=== PATIENT | female | born 1985 | race Caucasian/White ===

== ENCOUNTER 2021-02-09 11:04 | Outpatient (CLI) | payer OTHER, SELFPAY ==
--- NOTE | 2021-02-09 11:09 | US_ITS ---
WS: [id number] DIAGNOSTIC BILATERAL DIGITAL MAMMOGRAM WITH CAD Bilateral breast ultrasound, complete. HISTORY: N63.0 - Unspecified lump in unspecified breast COMPARISON: None available. TECHNIQUE: Bilateral craniocaudad, mediolateral oblique, and mediolateral views are submitted. Compre ssion RIGHT CC, LEFT CC and LEFT MLO. Computer aided detection utilized. Breast composition: There are scattered areas of fibroglandular density. There are no masses or disto rtion to correspond to the palpable markers placed within each breast. No skin thickening. Bilateral complete breast ultrasound. RIGHT breast: Ultrasound of all 4 quadrants demonstrated no abnormality. No suspicious masses or calc ifications. LEFT breast: Ultrasound of the entire LEFT breast demonstrates a small cyst measuring 4 mm at 1:00, 3 cm from the nipple. No distortion or shadowing. US/US breast BI complete [id number] IMPRESSION: BI-RADS: 2-Benign FOLLOW UP: 1 Year Follow-up No suspicious masses or calcifications identified to correspond to the palpable abnormalities.
--- NOTE | 2021-02-09 11:30 | MM_ITS ---
WS: [id number] DIAGNOSTIC BILATERAL DIGITAL MAMMOGRAM WITH CAD Bilateral breast ultrasound, complete. HISTORY: N63.0 - Unspecified lump in unspecified breast COMPARISON: None available. TECHNIQUE: Bilateral craniocaudad, mediolateral oblique, and mediolateral views are submitted. Compre ssion RIGHT CC, LEFT CC and LEFT MLO. Computer aided detection utilized. Breast composition: There are scattered areas of fibroglandular density. There are no masses or disto rtion to correspond to the palpable markers placed within each breast. No skin thickening. Bilateral complete breast ultrasound. RIGHT breast: Ultrasound of all 4 quadrants demonstrated no abnormality. No suspicious masses or calc ifications. LEFT breast: Ultrasound of the entire LEFT breast demonstrates a small cyst measuring 4 mm at 1:00, 3 cm from the nipple. No distortion or shadowing. MM/[place] [id number] IMPRESSION: BI-RADS: 2-Benign FOLLOW UP: 1 Year Follow-up No suspicious masses or calcifications identified to correspond to the palpable abnormalities.
== END 2021-02-09 11:05 | disposition home or self-care (01) ==
LOC: RADSHAW 11:06
PROVIDERS: PCP Nurse Practitioner; Visit Provider Nurse Practitioner
DX: N63.0 Unspecified lump in unspecified breast (principal); N60.02 Solitary cyst of left breast
CPT/HCPCS: 76641; 77066

== ENCOUNTER 2024-06-04 08:54 | Emergency (ER) | payer SELFPAY ==
[2024-06-04 09:00] VITALS: BP 129/105; PULSE 109; RESP 18; TEMP 36.8; O2SAT 96; BMI 39.9
[2024-06-04 09:23] VITALS: BP 129/105; PULSE 109; RESP 18; TEMP 36.8; O2SAT 96
--- NOTE | 2024-06-04 09:35 | ED_ITS ---
HPI - Extremity Problem General: Chief complaint: Extremity Problem,Nontraumatic Stated complaint: right and left hand pain and numb Time Seen by Provider: 06/04/24 08:56 Source: patient Mode of arrival: ambulatory Limitations: no limitations History of Present Illness: Patient is a 39-year-old female presents to ED today with complaint of bilateral finger pain and numbness. She states symptoms first started approximately 2 months ago. She is reporting numbness and pain to the palmar aspect of her bilateral first through third digits mainly to the palmar pads of the fingers. She feels like over that time. Symptoms have slowly worsened. 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 She has seen her primary care provider who has started her on gabapentin and also checked folate/B12 levels which were reportedly low. She states she is currently on IM B12 injections daily for a week and then will do weekly injections for a month. She has not noticed any improvement with these. She states her primary care provider (Dr. Melara) did talk about a possible neurology referral but wanted to try the medications first. Patient does not feel like symptoms are worse with certain provocative maneuvers. She states symptoms are constant, severe, and do not seem to wax and wane. She cannot think of any alleviating or worsening factors to her discomfort apart from applying ice to the finger pads. She has not noticed any color or temperature changes to the fingers or hands. She has not noticed any edema. Symptoms started at the same time bilaterally. MD Complaint: extremity pain Onset (ago): month(s) Pain Consistency: constant Location: left, right and upper extremity Severity scale (1-10): >10 Quality: burning Radiation: none Relieving factors: other (ice) Exacerbating factors: nothing Associated symptoms: Reports no associated symptoms; Deny fever(s) or rash Review of Systems Const: Denies: fever(s), chills, body aches, fatigue or malaise Musc: Reports: extremity pain; Denies: neck pain, extremity swelling, joint swelling, joint redness, joint warmth, joint stiffness, limited range of motion, muscle cramps or muscle weakness Skin/Breast: Denies: rash or erythema Neuro: Reports: numbness in extremities and sensory changes; Denies: headache(s), difficulty walking or dizziness [facility] ED PFSH: Medical History Chronic migraine with aura Surgical History History of 2005, 2008, 2010 Family History Grandmother Clotting disorder Diabetes Mother Hypertension Other Bleeding disorder Denies family history of Chronic kidney disease (CKD) Suicide Lung disease Cancer Stroke Social History Smoking and tobacco/nicotine status: current every day tobacco/nicotine user Alcohol intake: never Substance/Drug Use: never Adopted: No Lives independently: Yes Household members: spouse and family Housing: House Marital status: Number of children: 3 Highest education level completed: High School Graduate service: No Current occupational status: employed Current occupation: [employer] Pets and animals: Yes Sexually active: Yes Do you think of yourself as: Straight/Heterosexual Current gender identity: Female Female Reproductive History: Para: 3 Spontaneous abortions: No Physical Exam Const: COMMON NORMALS: no acute distress, no limitations, alert and well nourished GENERAL APPEARANCE: cooperative NUTRITIONAL APPEARANCE: obese (BMI 39.9) ORIENTATION/CONSCIOUSNESS: Yes awake, Yes oriented to person, Yes oriented to place and Yes oriented to time HENMT: COMMON NORMALS: normocephalic and atraumatic HEAD & SCALP: normal to inspection, normocephalic and atraumatic Neck/C-Spine: COMMON NORMALS: full ROM and no meningeal signs GENERAL: Yes normal visual inspection CERVICAL SPINE: Yes cervical ROM normal, No pain with cervical ROM, No Cervical spine tenderness and Yes other (negative Spurling's) Extremity: COMMON NORMALS: normal to inspection, full ROM and capillary refill normal GENERAL: Yes normal exam except as noted RIGHT UPPER EXTREMITY: Yes hand & digits LEFT UPPER EXTREMITY: Yes hand & digits OTHER: TTP palmar pads bilateral 1-3 digits; no edema/color/temp changes noted; radial pulses and cap refill normal negative Tinel's and Phalen's test Neuro: COMMON NORMALS: moves all extremities and no focal motor deficits SENSORIUM/ORIENTATION: Yes alert, Yes oriented to person, Yes oriented to place and Yes oriented to time MENINGEAL SIGNS: Yes no meningeal signs Skin: COMMON NORMALS: no rashes or lesions noted GENERAL SKIN EXAM: no rashes or lesions noted Course Vital Signs: Vital signs: Vital Signs Temperature 98.3 F 06/04/24 09:23 Pulse Rate 114 H 06/04/24 09:50 Respiratory Rate 18 06/04/24 09:23 Blood Pressure 149/114 06/04/24 09:50 Pulse Oximetry 98 06/04/24 09:50 Oxygen Delivery Me thod Room Air 06/04/24 09:23 MDM - Extremity (Nontraumatic) Medical Decision Making Patient with bilateral symmetrical peripheral neuropathy mainly affecting her first through third digits on palmar surface. Certainly this could be median nerve territory. She does not have any worsening symptoms with provocative maneuvers. Patient is tearful stating she cannot work due to symptoms. Patient has been evaluated through primary care and had blood work performed. From an emergency standpoint, I do not see any emergent labs or imaging that need to be performed today. I think she would benefit from a neurology consult and possible nerve conduction studies so referral was placed for this. Will increase her dose of gabapentin. Recommend she follow-up with primary care in the meantime. Return precautions given. Medical Records I reviewed the patient's medical records. No radiology studies performed this visit Discharge Plan Discharge Patient Disposition: Home Clinical Impression: Peripheral neuropathy Qualifiers: Peripheral neuropathy type: polyneuropathy, unspecified Qualified Code(s): G62.9 - Polyneuropathy, unspecified Condition: Stable Prescriptions: New gabapentin 300 mg capsule 600 mg PO Q8H Qty: 90 0RF No Action prednisone 20 mg tablet 20 mg PO BID Qty: 10 0RF fluticasone propionate [Flonase Allergy Relief] 50 mcg/actuation spray,suspension 2 spray intranasal DAILY Qty: 16 0RF Rx Instructions: administer into each nostril Discharge Orders: Discharge ED (Routine); Ordered 06/04/24 Ordered By: Gabby Rothman Referrals: Neymar Melara DO [Primary Care Provider] - Activity Restrictions/Additional Instructions: As we discussed we will increase your gabapentin dose to see if this gives you any relief. I will place a referral for neurology. You can continue to follow- up with your primary care provider. Coding Level of Care Code ED [employer] for Obdulia Medina
[2024-06-04 09:50] VITALS: BP 149/114; PULSE 114; O2SAT 98
--- NOTE | 2024-06-06 07:58 | DCPLANNER ---
messaged neuro for er f/u
== END 2024-06-04 09:51 | disposition home or self-care (01) ==
PROVIDERS: Emergency Provider Physician Assistant; PCP Electrodiagnostic Medicine
DX: G62.9 Polyneuropathy, unspecified (principal); Z72.0 Tobacco use
CPT/HCPCS: 99283

== ENCOUNTER → 2024-07-11 12:58 | Outpatient (BNVA) | payer OTHER, SELFPAY | PROVIDERS: PCP Electrodiagnostic Medicine; Visit Provider Nurse Practitioner | DX: M25.532 Pain in left wrist (principal) | CPT/HCPCS: 36415; 80053; 81003; 81015; 85025 ==

== ENCOUNTER → 2024-07-23 12:33 | Outpatient (BNVA) | payer OTHER, SELFPAY | PROVIDERS: PCP Electrodiagnostic Medicine; Referring Provider Electrodiagnostic Medicine; Visit Provider Psychiatry & Neurology Neurology | DX: G62.9 Polyneuropathy, unspecified (principal); G56.03 Carpal tunnel syndrome, bilateral upper limbs; G56.22 Lesion of ulnar nerve, left upper limb; G43.109 Migraine with aura, not intractable, without status migrainosus | CPT/HCPCS: 81241; 82306; 83090; 83735; 84207; 84591; 85210; 85300; 85303; 85306; 85613; 85730; 86146; 86147; 86160; 86162; 86235; 86255; 86334; 86376; 86431 ==

== ENCOUNTER 2024-07-29 21:32 | Emergency (ER) | payer OTHER, SELFPAY ==
[2024-07-29 21:36] VITALS: BP 153/88; PULSE 127; RESP 18; TEMP 36.5; O2SAT 96; BMI 35.7
[2024-07-29 21:40] VITALS: BP 131/96
--- NOTE | 2024-07-29 22:44 | W.ED.EXTPRO ---
Documented by User: SATISH Romero 07/30/24 01:01 HPI - Extremity Problem General: Chief complaint: Extremity Problem,Nontraumatic Stated complaint: numbness in hands, swelling in hands and feet Time Seen by Provider: 07/29/24 22:43 History of Present Illness: 39-year-old female comes in today for complaints of pain and discomfort to bilateral hands and feet. Patient has been diagnosed with neuropathy and carpal tunnel syndrome. Patient at this time is seeing a neurologist and is also being worked up by her primary care. Patient reports pain and discomfort was unbearable tonight which prompted her to come into the ER. Patient appears nontoxic. Patient appears in mild to moderate pain. Patient is holding onto a frozen bottle of water directly to her hands bilaterally. Related Data Home Medications Medication Instructions Recorded Confirmed iron fum,ps comp 125 mg iron-folic 1 cap PO DAILY 07/11/24 07/27/24 acid 1 mg-vit B comp,C no.9 capsule (Iron Folate Plus) nortriptyline 50 mg capsule 100 mg PO .hs 07/11/24 07/27/24 cyanocobalamin (vitamin B-12) 1,000 mcg IM 07/23/24 07/27/24 1,000 mcg/mL injection solution gabapentin 300 mg capsule 600 mg PO TID 07/23/24 07/27/24 pantoprazole 40 mg tablet,delayed 40 mg PO BID 07/27/24 07/27/24 release Previous Rx's Medication Instructions Recorded cholecalciferol (vitamin D3) 1,250 50,000 unit PO .weekly #14 caps 07/23/24 mcg (50,000 unit) capsule hydrocodone 5 mg-acetaminophen 325 1 tab PO Q6H PRN pain #10 tabs 07/29/24 mg tablet Allergies Allergy/AdvReac Type Severity Reaction Status Date / Time No Known Allergies Allergy Verified 07/29/24 21:41 Review of Systems General: Reports: 10 or more systems reviewed and unremarkable except in HPI and below PFSH ED PFSH: Medical History Sensory motor neuropathy Chronic migraine with aura Surgical History History of 2005, 2008, 2010 Family History Grandmother Clotting disorder Diabetes Mother Hypertension Other Bleeding disorder Denies family history of Chronic kidney disease (CKD) Suicide Lung disease Cancer Stroke Social History Smoking and tobacco/nicotine status: current every day tobacco/nicotine user Alcohol intake: never Substance/Drug Use: never Adopted: No Lives independently: Yes Household members: spouse and family Housing: House Marital status: Number of children: 3 Highest education level completed: High School Graduate service: No Current occupational status: employed Current occupation: [employer] Pets and animals: Yes Sexually active: Yes Do you think of yourself as: Straight/Heterosexual Current gender identity: Female Female Reproductive History: Para: 3 Spontaneous abortions: No Physical Exam Const: COMMON NORMALS: alert HENMT: COMMON NORMALS: normocephalic HEAD & SCALP: normocephalic Neck/C-Spine: GENERAL: Yes normal visual inspection Resp: COMMON NORMALS: normal respiratory effort Cardio: COMMON NORMALS: regular rate RATE: regular rate Back/Pelvis: COMMON NORMALS: thoracic and lumbar spine normal to inspection Extremity: COMMON NORMALS: normal to inspection NARRATIVE EXTREMITY EXAM: Patient has some mild swelling and redness to bilateral hands and feet. Pulses are intact distally in all extremities. Neuro: SENSORIUM/ORIENTATION: Yes alert Skin: COMMON NORMALS: turgor normal GENERAL SKIN EXAM: turgor normal Course Vital Signs: Vital signs: Vital Signs Temperature 97.7 F 07/29/24 21:36 Pulse Rate 127 H 07/29/24 21:36 Respiratory Rate 16 07/29/24 23:09 Blood Pressure 131/96 07/29/24 23:40 Pulse Oximetry 96 07/29/24 21:36 Oxygen Delivery Me thod Room Air 07/29/24 21:36 MDM - Extremity (Nontraumatic) Medical Decision Making 39-year-old female comes in today for complaints of pain to bilateral hands and feet. On exam respirations are even lungs are clear to auscultation. Skin is warm and dry. Vital signs are normal except for some elevated blood pressure. Bilateral hands have some mild swelling and erythema while patient is holding onto her iced bottle. Patient also has some mild swelling to the first MTP joint of the right foot. Distal pulses are intact in all extremities. Differential diagnosis includes peripheral neuropathy, carpal tunnel syndrome, tarsal tunnel syndrome, malingering, vasculitis. CBC was normal. CRP was normal. CMP showed no significant abnormalities. Patient sed rate was mildly elevated at 30. Patient had some mild swelling to bilateral hands most likely due to cold edema from holding a iced bottle of water. No significant swelling was noted in the feet. Pain most likely is due to patient's neuropathy. Recommended avoiding direct ice to the hand. Recommend following up with primary care for further instructions. Patient was first given a dose of Toradol and hydromorphone for her pain which seemed to make the patient more upset and tearful. Patient was then given 2 mg Ativan but again seem to cause the patient to become more tearful. Patient was then given 5 mg of Haldol which then seemed to relax and calm but continued to complain of pain. Patient was then discharged home recommendations for follow-up for neuropathy. Lab Data 07/29/24 23:55 07/29/24 23:55 Laboratory Results WBC 10.34 10^3/uL (3.29-11.43) 07/29/24 23:55 RBC 4.78 10^6/uL (3.85-5.65) 07/29/24 23:55 Hgb 13.50 g/dL (11.27-16.99) 07/29/24 23:55 Hct 42.5 % (36-47) 07/29/24 23:55 MCV 88.9 fl (85-98) 07/29/24 23:55 MCH 28.2 pg (27-33) 07/29/24 23:55 MCHC 31.8 g/dL (30-55) 07/29/24 23:55 RDW 14.6 % (12.1-15.1) 07/29/24 23:55 Plt Count 316 10^3/cmm (157-399) 07/29/24 23:55 MPV 9.7 fL (7.4-10.4) 07/29/24 23:55 Neut % (Auto) 70.8 % 07/29/24 23:55 Lymph % (Auto) 21.7 % 07/29/24 23:55 [place] % (Auto) 5.7 % 07/29/24 23:55 Eos % (Auto) 1.1 % 07/29/24 23:55 Baso % (Auto) 0.5 % 07/29/24 23:55 Neut # (Auto) 7.33 10^3/uL (1.8-7.7) 07/29/24 23:55 Lymph # (Auto) 2.2 10^3/uL (0.8-4.8) 07/29/24 23:55 [place] # (Auto) 0.6 10^3/uL (0.2-0.9) 07/29/24 23:55 Eos # (Auto) 0.1 10^3/uL (0.0-0.8) 07/29/24 23:55 Baso # (Auto) 0.1 10^3/uL (0.0-0.1) 07/29/24 23:55 Nucleated RBC % (auto) 0 % 07/29/24 23:55 Nucleated RBCs # 0.0 /100WBC 07/29/24 23:55 ESR 30 mm/hr (0-15) H 07/29/24 23:55 Sodium 136 mmol/L (136-145) 07/29/24 23:55 Potassium 3.8 mmol/L (3.5-5.1) 07/29/24 23:55 Chloride 103 mmol/L (98-107) 07/29/24 23:55 Carbon Dioxide 23 mmol/L (22-29) 07/29/24 23:55 Anion Gap 13.8 (5-19) 07/29/24 23:55 BUN 5 mg/dL (6-20) L 07/29/24 23:55 Creatinine 0.6 mg/dL (0.5-0.9) 07/29/24 23:55 GFR Calculation 111.9 mL/min (90-130) 07/29/24 23:55 Glucose 137 mg/dL (65-115) H 07/29/24 23:55 Calculated Osmolality 281 mOsm/kg (285-295) L 07/29/24 23:55 Calcium 8.8 mg/dL (8.5-10.5) 07/29/24 23:55 Total Bilirubin 0.2 mg/dL (0.15-1.2) 07/29/24 23:55 AST 16 U/L (0-32) 07/29/24 23:55 ALT 18 U/L (0-33) 07/29/24 23:55 Alkaline Phosphatase 84 U/L (35-105) 07/29/24 23:55 C-Reactive Protein 3.0 mg/L (0.0-4.9) 07/29/24 23:55 Total Protein 6.6 g/dL (6.6-8.7) 07/29/24 23:55 Albumin 3.5 g/dL (3.5-5.2) 07/29/24 23:55 Globulin 3.1 g/dL (1.3-4.6) 07/29/24 23:55 No radiology studies performed this visit Discharge Plan Discharge Patient Disposition: Home Clinical Impression: Peripheral neuralgia, Mild peripheral edema Condition: Stable Prescriptions: New hydrocodone-acetaminophen 5-325 mg tablet 1 tab PO Q6H PRN (Reason: pain) Qty: 10 0RF No Action pantoprazole 40 mg tablet,delayed release (DR/EC) 40 mg PO BID gabapentin 300 mg capsule 600 mg PO TID cyanocobalamin (vitamin B-12) 1,000 mcg/mL solution 1,000 mcg IM Iron Folate Plus 125 mg iron- 1 mg capsule 1 cap PO DAILY Rx Instructions: administer between meals nortriptyline 50 mg capsule 100 mg PO .hs cholecalciferol (vitamin D3) 1,250 mcg (50,000 unit) capsule 50,000 unit PO .weekly Qty: 14 5RF Discharge Orders: Discharge ED (Routine); Ordered 07/30/24 Ordered By: Lux Sapp Referrals: Neymar Melara DO [Primary Care Provider] - Discharge Diet: Usual diet Discharge Activity: Increase activity as tolerated Patient Instructions: Opioid Safety, Pain Management Activity Restrictions/Additional Instructions: Follow-up with PCP for further instructions and recommendations. Return to ED for new concerns. Coding Level of Care Code ED Director Apparel for [employer]g Fwd Documented by User: Waldo Montes DO 07/30/24 01:10 HPI - Extremity Problem General: Chief complaint: Extremity Problem,Nontraumatic Stated complaint: numbness in hands, swelling in hands and feet Time Seen by Provider: 07/29/24 22:43 Related Data Home Medications Medication Instructions Recorded Confirmed iron fum,ps comp 125 mg iron-folic 1 cap PO DAILY 07/11/24 07/27/24 acid 1 mg-vit B comp,C no.9 capsule (Iron Folate Plus) nortriptyline 50 mg capsule 100 mg PO .hs 07/11/24 07/27/24 cyanocobalamin (vitamin B-12) 1,000 mcg IM 07/23/24 07/27/24 1,000 mcg/mL injection solution gabapentin 300 mg capsule 600 mg PO TID 07/23/24 07/27/24 pantoprazole 40 mg tablet,delayed 40 mg PO BID 07/27/24 07/27/24 release Previous Rx's Medication Instructions Recorded cholecalciferol (vitamin D3) 1,250 50,000 unit PO .weekly #14 caps 07/23/24 mcg (50,000 unit) capsule hydrocodone 5 mg-acetaminophen 325 1 tab PO Q6H PRN pain #10 tabs 07/29/24 mg tablet Allergies Allergy/AdvReac Type Severity Reaction Status Date / Time No Known Allergies Allergy Verified 07/29/24 21:41 PFSH ED PFSH: Medical History Sensory motor neuropathy Chronic migraine with aura Surgical History History of 2005, 2008, 2010 Family History Grandmother Clotting disorder Diabetes Mother Hypertension Other Bleeding disorder Denies family history of Chronic kidney disease (CKD) Suicide Lung disease Cancer Stroke Social History Smoking and tobacco/nicotine status: current every day tobacco/nicotine user Alcohol intake: never Substance/Drug Use: never Adopted: No Lives independently: Yes Household members: spouse and family Housing: House Marital status: Number of children: 3 Highest education level completed: High School Graduate service: No Current occupational status: employed Current occupation: [employer] Pets and animals: Yes Sexually active: Yes Do you think of yourself as: Straight/Heterosexual Current gender identity: Female Course Vital Signs: Vital signs: Vital Signs Temperature 97.7 F 07/29/24 21:36 Pulse Rate 127 H 07/29/24 21:36 Respiratory Rate 16 07/29/24 23:09 Blood Pressure 131/96 07/29/24 23:40 Pulse Oximetry 96 07/29/24 21:36 Oxygen Delivery Me thod Room Air 07/29/24 21:36 MDM - Extremity (Nontraumatic) Medical Decision Making 39-year-old female comes in today for complaints of pain to bilateral hands and feet. On exam respirations are even lungs are clear to auscultation. Skin is warm and dry. Vital signs are normal except for some elevated blood pressure. Bilateral hands have some mild swelling and erythema while patient is holding onto her iced bottle. Patient also has some mild swelling to the first MTP joint of the right foot. Distal pulses are intact in all extremities. Differential diagnosis includes peripheral neuropathy, carpal tunnel syndrome, tarsal tunnel syndrome, malingering, vasculitis. CBC was normal. CRP was normal. CMP showed no significant abnormalities. Patient sed rate was mildly elevated at 30. Patient had some mild swelling to bilateral hands most likely due to cold edema from holding a iced bottle of water. No significant swelling was noted in the feet. Pain most likely is due to patient's neuropathy. Recommended avoiding direct ice to the hand. Recommend following up with primary care for further instructions. Patient was first given a dose of Toradol and hydromorphone for her pain which seemed to make the patient more upset and tearful. Patient was then given 2 mg Ativan but again seem to cause the patient to become more tearful. Patient was then given 5 mg of Haldol which then seemed to relax and calm but continued to complain of pain. Patient was then discharged home recommendations for follow-up for neuropathy. This patient was originally seen by SATISH Mcintosh.? I agree with his history, evaluation, and treatment. Lab Data 07/29/24 23:55 07/29/24 23:55 Laboratory Results WBC 10.34 10^3/uL (3.29-11.43) 07/29/24 23:55 RBC 4.78 10^6/uL (3.85-5.65) 07/29/24 23:55 Hgb 13.50 g/dL (11.27-16.99) 07/29/24 23:55 Hct 42.5 % (36-47) 07/29/24 23:55 MCV 88.9 fl (85-98) 07/29/24 23:55 MCH 28.2 pg (27-33) 07/29/24 23:55 MCHC 31.8 g/dL (30-55) 07/29/24 23:55 RDW 14.6 % (12.1-15.1) 07/29/24 23:55 Plt Count 316 10^3/cmm (157-399) 07/29/24 23:55 MPV 9.7 fL (7.4-10.4) 07/29/24 23:55 Neut % (Auto) 70.8 % 07/29/24 23:55 Lymph % (Auto) 21.7 % 07/29/24 23:55 [place] % (Auto) 5.7 % 07/29/24 23:55 Eos % (Auto) 1.1 % 07/29/24 23: Baso % (Auto) 0.5 % 07/29/24 23:55 Neut # (Auto) 7.33 10^3/uL (1.8-7.7) 07/29/24 23:55 Lymph # (Auto) 2.2 10^3/uL (0.8-4.8) 07/29/24 23:55 [place] # (Auto) 0.6 10^3/uL (0.2-0.9) 07/29/24 23:55 Eos # (Auto) 0.1 10^3/uL (0.0-0.8) 07/29/24 23:55 Baso # (Auto) 0.1 10^3/uL (0.0-0.1) 07/29/24 23:55 Nucleated RBC % (auto) 0 % 07/29/24 23: Nucleated RBCs # 0.0 /100WBC 07/29/24 23:55 ESR 30 mm/hr (0-15) H 07/29/24 23:55 Sodium 136 mmol/L (136-145) 07/29/24 23:55 Potassium 3.8 mmol/L (3.5-5.1) 07/29/24 23:55 Chloride 103 mmol/L (98-107) 07/29/24 23:55 Carbon Dioxide 23 mmol/L (22-29) 07/29/24 23:55 Anion Gap 13.8 (5-19) 07/29/24 23:55 BUN 5 mg/dL (6-20) L 07/29/24 23:55 Creatinine 0.6 mg/dL (0.5-0.9) 07/29/24 23:55 GFR Calculation 111.9 mL/min (90-130) 07/29/24 23:55 Glucose 137 mg/dL (65-115) H 07/29/24 23:55 Calculated Osmolality 281 mOsm/kg (285-295) L 07/29/24 23:55 Calcium 8.8 mg/dL (8.5-10.5) 07/29/24 23:55 Total Bilirubin 0.2 mg/dL (0.15-1.2) 07/29/24 23:55 AST 16 U/L (0-32) 07/29/24 23:55 ALT 18 U/L (0-33) 07/29/24 23:55 Alkaline Phosphatase 84 U/L (35-105) 07/29/24 23:55 C-Reactive Protein 3.0 mg/L (0.0-4.9) 07/29/24 23:55 Total Protein 6.6 g/dL (6.6-8.7) 07/29/24 23:55 Albumin 3.5 g/dL (3.5-5.2) 07/29/24 23:55 Globulin 3.1 g/dL (1.3-4.6) 07/29/24 23:55 Discharge Plan Discharge Patient Disposition: Home Clinical Impression: Peripheral neuralgia, Mild peripheral edema Condition: Stable Prescriptions: New hydrocodone-acetaminophen 5-325 mg tablet 1 tab PO Q6H PRN (Reason: pain) Qty: 10 0RF No Action pantoprazole 40 mg tablet,delayed release (DR/EC) 40 mg PO BID gabapentin 300 mg capsule 600 mg PO TID cyanocobalamin (vitamin B-12) 1,000 mcg/mL solution 1,000 mcg IM Iron Folate Plus 125 mg iron- 1 mg capsule 1 cap PO DAILY Rx Instructions: administer between meals nortriptyline 50 mg capsule 100 mg PO .hs cholecalciferol (vitamin D3) 1,250 mcg (50,000 unit) capsule 50,000 unit PO .weekly Qty: 14 5RF Discharge Orders: Discharge ED (Routine); Ordered 07/30/24 Ordered By: Lux Sapp Referrals: Neymar Melara DO [Primary Care Provider] - Discharge Diet: Usual diet Discharge Activity: Increase activity as tolerated Patient Instructions: Opioid Safety, Pain Management Activity Restrictions/Additional Instructions: Follow-up with PCP for further instructions and recommendations. Return to ED for new concerns. Coding Level of Care Code ED Director Apparel for Obdulia Medina
[2024-07-29 23:09] VITALS: RESP 16
[2024-07-29] MEDS: HYDROmorphone 1 mg/mL INJ 1 mL 0.5 MG IM (23:09)
[2024-07-29] MEDS: ketorolac 30 mg/mL INJ IM (23:10)
[2024-07-29 23:40] VITALS: BP 131/96
[2024-07-29] MEDS: LORazepam 2 mg/mL INJ 1 mL IM (23:50)
--- NOTE | 2024-07-29 23:52 | PC.NURSE ---
Pt mother came to nurse's station and stated that medication was not working . This nurse returned to the room and pt was found to be crying and rolling bottle of ice in her hands. Lux notified and he went back to pt room. Pt mother came back out to nurse's station to question why Lux would order labs. This nurse explained that we are aware Dr. Estrada has ordered labs and is doing a full work up.
[2024-07-30 00:06] LABS: Basophils # 0.1 10^3/uL (0.0-0.1); Basophils % 0.5 %; Eosinophils # 0.1 10^3/uL (0.0-0.8); Eosinophils % 1.1 %; Hematocrit 42.5 % (36-47); Lymphocytes # 2.2 10^3/uL (0.8-4.8); Lymphocytes % 21.7 %; Mean Corpuscular HGB Conc 31.8 g/dL (30-55); Mean Corpuscular Hemoglobin 28.2 pg (27-33); Mean Corpuscular Volume 88.9 fl (85-98); Mean Platelet Volume 9.7 fL (7.4-10.4); Monocytes # 0.6 10^3/uL (0.2-0.9); Monocytes % 5.7 %; Neutrophils # 7.33 10^3/uL (1.8-7.7); Neutrophils % 70.8 %; Nucleated Red Blood Cells % 0 %; Platelet Count 316 10^3/cmm (157-399); Red Blood Count 4.78 10^6/uL (3.85-5.65); Red Cell Distribution Width 14.6 % (12.1-15.1); White Blood Count 10.34 10^3/uL (3.29-11.43)
[2024-07-30 00:12] LABS: Erythrocyte Sedimentation Rate 30 mm/hr (0-15)
[2024-07-30 00:27] LABS: Alanine Aminotransferase 18 U/L (0-33); Albumin Level 3.5 g/dL (3.5-5.2); Alkaline Phosphatase 84 U/L (35-105); Anion Gap 13.8 (5-19); Aspartate Amino Transferase 16 U/L (0-32); Blood Urea Nitrogen 5 mg/dL (6-20); Calcium 8.8 mg/dL (8.5-10.5); Carbon Dioxide 23 mmol/L (22-29); Chloride 103 mmol/L (98-107); Creatinine Clr Calc Pharmacy 162.5175; Globulin 3.1 g/dL (1.3-4.6); Glomerular Filtration Rate 111.9 mL/min (90-130); Glucose 137 mg/dL (65-115); Osmolality Calculated 281 mOsm/kg (285-295); Potassium 3.8 mmol/L (3.5-5.1); Sodium 136 mmol/L (136-145); Total Bilirubin 0.2 mg/dL (0.15-1.2); Total Protein 6.6 g/dL (6.6-8.7)
[2024-07-30] MEDS: haloperidol inj 5 mg/mL INJ 1 mL IM (00:37)
[2024-07-30 01:02] VITALS: BP 161/112; PULSE 92; O2SAT 98
== END 2024-07-30 01:11 | disposition home or self-care (01) ==
PROVIDERS: Emergency Provider Nurse Practitioner Family; PCP Electrodiagnostic Medicine
DX: G58.8 Other specified mononeuropathies (principal)
CPT/HCPCS: 36415; 80053; 85025; 85651; 86140; 96372; 99284; J1170; J1630; J1885; J2060

== ENCOUNTER 2024-07-31 09:42 | Day surgery (SDC) | payer OTHER, SELFPAY ==
[2024-07-31 10:51] LABS: OR HCG Qualitative Urine Negative (Negative)
[2024-07-31 10:53] VITALS: BMI 36.8
[2024-07-31 10:55] VITALS: BP 128/93; PULSE 124; RESP 18; TEMP 36.7; O2SAT 99
--- NOTE | 2024-07-31 11:11 | P.ANESASSM_ITS ---
Pre-Anesthetic Assessment Height/Weight: Height 5 ft 7 in Weight 235 lb Temp Pulse Resp BP Pulse Ox O2 Del Method 98.0 F 124 H 18 128/93 99 Room Air 07/31/24 10:55 07/31/24 10:55 07/31/24 10:55 07/31/24 10:55 07/31/24 10:55 07/31/24 11:05 Preop Diagnosis: Carpal tunnel Operation Date: 07/31/24 11:50 Proposed Procedures p Carpal Tunnel Release(Left) - Ashley Howell MD Last intake: Intake Last Liquid Date 07/30/24 Last Liquid Time 23:55 Last Solid Date 07/30/24 Last Solid Time 17:00 Social Tobacco and No alcohol Exam alert, oriented x 3, clear to auscultation bilaterally and regular rate & rhythm Airway Submandibular: within normal limits Cervical ROM: within normal limits Mallampati: Class III Dentition: full Anesthetic Plan ASA status: 3 Anesthesia: General Other: No prior issues with anesthesia Patient is NPO since last night Patient went to the ER yesterday for extreme pain in bilateral feet and hands Patient is supposed to have an MRI in the near future with plans to see cardiology She reports numbness/tingling in both feet that goes up her legs as well as numbness in her hands Patient's hands and feet are visually swollen with redness noted Workup in the ER was negative yesterday, patient denies any fevers/chills She also reports chronic migraines that are debilitating at times. GERD takes pantoprazole METs greater than 4 Plan for general anesthesia with LMA Medications/Allergies Home Medications Medication Instructions Recorded Confirmed Last Taken Type iron fum,ps comp 125 mg iron-folic 1 cap PO DAILY 07/11/24 07/30/24 07/30/24 History acid 1 mg-vit B comp,C no.9 capsule (Iron Folate Plus) nortriptyline 50 mg capsule 100 mg PO .hs 07/11/24 07/30/24 07/30/24 History cholecalciferol (vitamin D3) 1,250 50,000 unit PO .weekly #14 caps 07/23/24 07/30/24 07/25/24 Rx mcg (50,000 unit) capsule cyanocobalamin (vitamin B-12) 1,000 mcg IM Q30D 07/23/24 07/30/24 07/04/24 History 1,000 mcg/mL injection solution gabapentin 300 mg capsule 600 mg PO TID 07/23/24 07/30/24 07/31/24 History pantoprazole 40 mg tablet,delayed 40 mg PO BID 07/27/24 07/30/24 07/31/24 History release hydrocodone 5 mg-acetaminophen 325 1 tab PO Q6H PRN pain #10 tabs 07/29/24 07/30/24 07/31/24 Rx mg tablet Allergies Allergy/AdvReac Type Severity Reaction Status Date / Time No Known Allergies Allergy Verified 07/29/24 21:41 [facility] Anesthesia Medical History Sensory motor neuropathy Chronic migraine with aura Surgical History History of 2005, 2008, 2010 Family History Grandmother Clotting disorder Diabetes Mother Hypertension Other Bleeding disorder Denies family history of Chronic kidney disease (CKD) Suicide Lung disease Cancer Stroke Social History Smoking and tobacco/nicotine status: current every day tobacco/nicotine user Alcohol intake: never Substance/Drug Use: never Adopted: No Lives independently: Yes Household members: spouse and family Housing: House Marital status: Number of children: 3 Highest education level completed: High School Graduate service: No Current occupational status: employed Current occupation: [employer] Pets and animals: Yes Sexually active: Yes Do you think of yourself as: Straight/Heterosexual Current gender identity: Female Female Reproductive History Para: 3 Spontaneous abortions: No Data Anesthesia Cardiac Studies: No Data to Display
[2024-07-31] MEDS: sodium chloride 0.9% 1,000 ML 30 ML IV (11:35)
[2024-07-31] MEDS: CELEcoxib 200 mg Capsule 400 MG PO (11:37)
[2024-07-31] MEDS: gabapentin 300 mg Capsule PO (11:41)
[2024-07-31] MEDS: acetaminophen 1,000 MG/100 ML PIGGYBACK 400 MG IV (11:43)
--- NOTE | 2024-07-31 11:54 | SUR.PREOP ---
11:[address] Howell, surgery cancelled per Dr Howell and patient's wishes. Patient to follow up with primary care physician.
--- NOTE | 2024-07-31 11:58 | PM.MISC ---
Miscellaneous Note Purpose of Documentation: Cancellation of surgery Note: Patient had been seen in the emergency department last night with complaints of severe bilateral hand and bilateral foot pain. Today, preoperatively, she has significant swelling in the long finger of the left hand. Both hands are quite red and the redness extends up into her forearms. She also has significant discoloration and redness in both feet. The patient is being worked up for these symptoms. She has an MRI pending next week of the cervical spine and neck. She is also seeing a neurologist. She has had rheumatologic evaluation laboratory [facility], but she has not yet seen a submersible pilot. I have advised the patient that I feel that it would be better to delay her surgical procedure until after the studies are completed. Actually, the patient and her family are relieved with the decision to cancel her surgery.
[2024-07-31 12:00] VITALS: BP 100/81; PULSE 104; RESP 16; O2SAT 98
== END 2024-07-31 12:30 | disposition home or self-care (01) ==
PROVIDERS: Student in an Organized Health Care Education/Training Program; PCP Electrodiagnostic Medicine; Visit Provider Specialist
PROC: (CPT 64721; principal; 2024-07-31 11:50)
DX: G56.03 Carpal tunnel syndrome, bilateral upper limbs (principal); Z53.9 Procedure and treatment not carried out, unspecified reason
CPT/HCPCS: 81025; J0131; J1100; J2405; J2704; J3010; J7030

== ENCOUNTER 2024-08-16 13:32 | Outpatient (CLI) | payer OTHER, SELFPAY ==
--- NOTE | 2024-08-16 13:45 | MR_ITS ---
WS: [id number] MR CERVICAL SPINE WO/W HISTORY: G62.9 - Polyneuropathy, unspecified TECHNIQUE: Sagittal T1, T2 and T2 inversion recovery; axial T2, T2 gradient and fiesta. Post gadolini um imaging with fat saturation technique. FINDINGS: Straightening of the normal cervical lordosis. Mild spondylitic changes. Disc space narrowing worse a t C6-7. Small central protrusions at C4-C5 C5-C6 and C6-C7. C2-3: Spinal canal and foramen are patent. C3-4: Tiny shallow central protrusion. Mild facet arthropathy. Mild LEFT greater than RIGHT foraminal narrowing. C4-5: Central disc osteophyte protrusion with slight indentation on the cervical cord. Mild central c anal stenosis. Moderate facet arthropathy. Mild LEFT foraminal narrowing. C5-6: Central disc protrusion with slight indentation on the cervical cord. Mild central canal stenos is. Mild LEFT foraminal narrowing. C6-7: RIGHT paracentral and central disc protrusion with indentation on the RIGHT ventral cervical co rd. Mild to moderate central canal stenosis. Moderate LEFT greater than RIGHT bony foraminal narrowin g. Moderate facet arthropathy with uncovertebral joint hypertrophy. C7-T1: Tiny shallow RIGHT paracentral protrusion. Mild LEFT foraminal narrowing. Spinal canal and RIG HT foramen are patent. Mild facet arthropathy. Enlarged multinodular LEFT thyroid. MR/MR cervical spine wo/w 19803 IMPRESSION: 1. Straightening of the normal cervical lordosis. No high-grade central canal narrowing. Cord signal is normal. 2. Small central protrusions C5-C6 and C6-C7 with slight indentation of the ce rvical cord. Mild central canal stenosis C5-6 and mild to moderate at C6-7 inde ntation worse on the RIGHT ventral cervical cord at C6-7. 3. Tiny shallow central protrusion C4-5 with slight contact of the cervical co rd and mild central canal stenosis. 4. No abnormal gadolinium enhancement. 5. Moderate LEFT greater than RIGHT C6-7 bony foraminal narrowing.
[2024-08-16] MEDS: gadobenate dimeglumine 20 mL vial IV (14:15)
== END 2024-08-16 13:33 | disposition home or self-care (01) ==
LOC: RAD 13:32
PROVIDERS: PCP Electrodiagnostic Medicine; Visit Provider Psychiatry & Neurology Neurology
DX: M50.323 Other cervical disc degeneration at C6-C7 level (principal); M47.892 Other spondylosis, cervical region; M48.02 Spinal stenosis, cervical region; G62.9 Polyneuropathy, unspecified
CPT/HCPCS: 72156

== ENCOUNTER → 2024-08-28 13:10 | Outpatient (BNVA) | payer OTHER, SELFPAY | PROVIDERS: PCP Electrodiagnostic Medicine; Visit Provider Orthopaedic Surgery | DX: M54.2 Cervicalgia (principal); M54.9 Dorsalgia, unspecified | CPT/HCPCS: 72050; 72110 ==